=== PATIENT | female | born 1995 | race African-American/Black ===

== ENCOUNTER 2016-07-07 04:14 | Emergency (ER) | payer OTHER, SELFPAY ==
[2016-07-07] MEDS ORDERED: LIDOCAINE W/EPINEPHRINE 1% 20ML VIAL As Ordered ONE (04:38)
--- NOTE | 2016-07-07 05:16 | EDDOCDS ---
Physician Documentation [facility] Name: Caitlin Bardales Age: 20 yrs Sex: Female : 1995 Arrival Date: 07/07/2016 Time: 04:14 Bed 9 Private MD: Shavon Turner Disposition: 07/07/16 05:05 Discharged to Home/Self Care. Impression: Cracked tooth. - Condition is Stable. - Prescriptions for Clindamycin HCl 150 mg Oral Capsule - take 1 capsule by ORAL route 4 times per day for 10 days; 40 capsule. - Medication Reconciliation, Local Pharmacy Hours form. - Follow up: Private Physician; When: follow with dentist. - Problem is an ongoing problem. - Symptoms have improved. Historical: - Allergies: No known drug Allergies; - Home Meds: 1. none - PMHx: none; - PSHx: ; - Social history: Smoking status: Patient states was never smoker of tobacco. No barriers to communication noted, The patient speaks fluent Romanian. - Family history: Not pertinent. - : The pt / caregiver states he / she is not on anticoagulants. Home medication list is obtained from the patient. - Exposure Risk Screening:: None identified. 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 1 in. (154.94 cm); Pain 7/10; 04:27 Body Mass Index 28.34 (68.04 kg, 154.94 cm) [facility] Procedures: 05:02 Dental block: Location: periapical block. cs11 05:02 Dental block: Medication: Lidocaine 1% with epinephrine, Amount: 3.0 mls were injected, cs11 Effect: the patient tolerated the procedure well. MDM: 04:46 Financial registration complete. pm4 04:49 [facility] Payment Agreement was scanned into [employer] and attached to record. pm4 Signatures: Krzysztof Edmonds DO DO cs11 Maria Elena Rosario RN RN mlc Amber Aguayo RN RN ko2 Harjit Dominique, Reg Reg pm4 The chart was reviewed and I authenticate all verbal orders and agree with the evaluation and treatment provided.Attachments: 04:49 [facility] Payment Agreement pm4 MTDD
--- NOTE | 2016-07-07 05:16 | EDDOCDS ---
Nurse's Notes [facility] Name: Caitlin Bardales Age: 20 yrs Sex: Female : 1995 Arrival Date: 07/07/2016 Time: 04:14 Bed 9 Private MD: Shavon Turner Diagnosis: Cracked tooth Presentation: 07/07 04:26 Presenting complaint: Patient states: dental pain for 3 days, pt reports facial mlc swelling on right side. pt c/o headache. pt states she does not have dental insurance at this time. Adult Sepsis Screening: The patient does not have new or worsening altered mentation. Patient's respiratory rate is less than 22. Systolic blood pressure is greater than 100. Patient has a qSOFA score of 0- Negative Sepsis Screen. Suicide/Homicide risk assessment- the patient denies having any suicidal and/or homicidal ideations and does not present with any other emotional, behavioral or mental health complaints. Status: The patient is a dependent. Transition of care: patient was not received from another setting of care. 04:26 Acuity: SHAHEEN Level 5 mlc 04:26 Method Of Arrival: Walkin/Carried/Asstd mlc Triage Assessment: 04:27 General: Appears in no apparent distress, comfortable, Behavior is appropriate for age, mlc cooperative. Pain: Location: upper right third molar Pain currently is 7 out of 10 on a pain scale. HIV screening NA for this visit Offered previously. The patient is triaged at the bedside. See Assessment in Nurses Notes section of ED record. Neurological: Level of Consciousness is awake, alert, Oriented to person, place, time. EENT: Reports pain in upper right third molar. Respiratory: Airway is patent Respiratory effort is even, unlabored, Respiratory pattern is regular. Derm: Skin is normal, no swelling noted. 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 none - PMHx: none; - PSHx: ; - Social history: Smoking status: Patient states was never smoker of tobacco. No barriers to communication noted, The patient speaks fluent Togolese. - Family history: Not pertinent. - : The pt / caregiver states he / she is not on anticoagulants. Home medication list is obtained from the patient. - Exposure Risk Screening:: None identified. Screenin:30 Screening information is obtained from the patient. Fall risk: No risks identified. [facility] Assistance ADL's: requires no assistance with activities of daily living. Abuse/DV Screen: The patient / caregiver reports he/she is: not in a situation that causes fear, pain or injury. Nutritional screening: No deficits noted. Advance Directives: Currently, there is no health care proxy. There is no Power of Welder [employer]. home support is adequate. Assessment: 04:35 General: Appears in no apparent distress, Behavior is appropriate for age, cooperative. nn1 Pain: Location: upper right third molar Pain currently is 7 out of 10 on a pain scale. Neurological: Level of Consciousness is awake, alert. EENT: Reports pain in upper right third molar Pain is 7 out of 10 on a pain scale. Respiratory: Derm: Skin is normal. 05:11 General: Appears in no apparent distress, Behavior is appropriate for age, cooperative. ko2 Pain: Denies pain. Neurological: Level of Consciousness is awake, alert. Respiratory: Airway is patent Respiratory effort is even, unlabored. Derm: Skin is normal. Vital Signs: 04:27 BP 130 / 87; Pulse 74; Resp 18; Temp 97.1(T); Pulse Ox 100% ; Weight 68.04 kg; Height 5 [facility] ft. 1 in. (154.94 cm); Pain 7/10; 04:27 Body Mass Index 28.34 (68.04 kg, 154.94 cm) [facility] Vitals: 04:27 Log In Time: July 07, 2016 at 04:14. [facility] ED Course: 04:16 Patient visited by Bushra Forrest Reg. hs2 04:16 Shavon Turner is Private Physician. hs2 04:16 Patient moved to Waiting hs2 04:27 Triage Initiated [facility] 04:31 Amber Aguayo,PAZ is Primary Nurse. [facility] 04:31 Krzysztof Edmonds DO is Attending Physician. cs11 04:31 Patient visited by Krzysztof Edmonds DO. cs11 04:31 Patient moved to 9 [facility] 04:49 [facility] Payment Agreement was scanned into [employer] and attached to record. pm4 05:11 The patient / caregiver is instructed regarding the plan of care and ED course. ko2 05:11 No IV's were initiated during this patient's visit. No procedures done that require ko2 assistance. Order Results: There are currently no results for this order. Outcome: 05:05 Discharge ordered by Provider. cs11 05:12 Discharge Assessment: Patient awake, alert and oriented x 3. No cognitive and/or ko2 functional deficits noted. Patient verbalized understanding of disposition instructions. patient administered narcotics - no. The following High Risk Discharge criteria are identified: None. Discharged to home ambulatory. Condition: stable. Discharge instructions given to patient, Instructed on discharge instructions, follow up and referral plans. medication usage, Demonstrated understanding of instructions, medications, Pt was receptive of discharge instructions/ teaching. Prescriptions given X 1. No special radiology studies were completed. Property :Personal belongings accompany Pt. 05:15 Patient left the ED. ko2 Signatures: Krzysztof Edmonds, DO cs11 Maria Elena Rosario,PAZ RN [facility] Amber Aguayo RN RN ko2 Wilbert Jett RN RN nn1 Bushra Forrest, Reg Reg hs2 Harjit Dominique, Reg Reg pm4 MTDD
--- NOTE | 2016-07-09 06:16 | EDDOCDS ---
Physician Documentation [facility] Name: Caitlin Bardales Age: 20 yrs Sex: Female : 1995 Arrival Date: 07/07/2016 Time: 04:14 Bed 9 Private MD: Shavon Turner Disposition: 07/07/16 05:05 Discharged to Home/Self Care. Impression: Cracked tooth. - Condition is Stable. - Prescriptions for Clindamycin HCl 150 mg Oral Capsule - take 1 capsule by ORAL route 4 times per day for 10 days; 40 capsule. - Medication Reconciliation, Local Pharmacy Hours form. - Follow up: Private Physician; When: follow with dentist. - Problem is an ongoing problem. - Symptoms have improved. Historical: - Allergies: No known drug Allergies; - Home Meds: 1. none - PMHx: none; - PSHx: ; - Social history: Smoking status: Patient states was never smoker of tobacco. No barriers to communication noted, The patient speaks fluent Iraqi. - Family history: Not pertinent. - : The pt / caregiver states he / she is not on anticoagulants. Home medication list is obtained from the patient. - Exposure Risk Screening:: None identified. 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 1 in. (154.94 cm); Pain 7/10; 04:27 Body Mass Index 28.34 (68.04 kg, 154.94 cm) [facility] Procedures: 05:02 Dental block: Location: periapical block. cs11 05:02 Dental block: Medication: Lidocaine 1% with epinephrine, Amount: 3.0 mls were injected, cs11 Effect: the patient tolerated the procedure well. MDM: 04:46 Financial registration complete. pm4 04:49 [facility] Payment Agreement was scanned into [employer] and attached to record. pm4 13:33 T-Sheet-- Draft Copy was scanned into [employer] and attached to record. gb Signatures: Aminta Mercado, Reg Reg Krzysztof Cross DO DO cs11 Rosario,Maria Elena,Amber Thomas RN, RN RN ko2 Harjit Dominique, Reg Reg pm4 The chart was reviewed and I authenticate all verbal orders and agree with the evaluation and treatment provided.Attachments: 04:49 [facility] Payment Agreement pm4 13:33 T-Sheet-- Draft Copy gb Chart Complete MTDD
--- NOTE | 2016-07-09 06:16 | EDDOCDS ---
Physician Documentation [facility] Name: Caitlin Bardales Age: 20 yrs Sex: Female : 1995 Arrival Date: 07/07/2016 Time: 04:14 Bed 9 Private MD: Shavon Turner Disposition: 07/07/16 05:05 Discharged to Home/Self Care. Impression: Cracked tooth. - Condition is Stable. - Prescriptions for Clindamycin HCl 150 mg Oral Capsule - take 1 capsule by ORAL route 4 times per day for 10 days; 40 capsule. - Medication Reconciliation, Local Pharmacy Hours form. - Follow up: Private Physician; When: follow with dentist. - Problem is an ongoing problem. - Symptoms have improved. Historical: - Allergies: No known drug Allergies; - Home Meds: 1. none - PMHx: none; - PSHx: ; - Social history: Smoking status: Patient states was never smoker of tobacco. No barriers to communication noted, The patient speaks fluent Salvadorean. - Family history: Not pertinent. - : The pt / caregiver states he / she is not on anticoagulants. Home medication list is obtained from the patient. - Exposure Risk Screening:: None identified. 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 1 in. (154.94 cm); Pain 7/10; 04:27 Body Mass Index 28.34 (68.04 kg, 154.94 cm) [facility] Procedures: 05:02 Dental block: Location: periapical block. cs11 05:02 Dental block: Medication: Lidocaine 1% with epinephrine, Amount: 3.0 mls were injected, cs11 Effect: the patient tolerated the procedure well. MDM: 04:46 Financial registration complete. pm4 04:49 [facility] Payment Agreement was scanned into [employer] and attached to record. pm4 13:33 T-Sheet-- Draft Copy was scanned into [employer] and attached to record. gb Signatures: Aminta Mercado, Reg Reg Krzysztof Cross DO DO cs11 Rosario,Maria Elena,Amber Thomas RN, RN RN ko2 Harjit Dominique, Reg Reg pm4 The chart was reviewed and I authenticate all verbal orders and agree with the evaluation and treatment provided.Attachments: 04:49 [facility] Payment Agreement pm4 13:33 T-Sheet-- Draft Copy gb Chart Complete MTDD
--- NOTE | 2016-07-09 06:16 | EDDOCDS ---
Nurse's Notes [facility] Name: Caitlin Bardales Age: 20 yrs Sex: Female : 1995 Arrival Date: 07/07/2016 Time: 04:14 Bed 9 Private MD: Shavon Turner Diagnosis: Cracked tooth Presentation: 07/07 04:26 Presenting complaint: Patient states: dental pain for 3 days, pt reports facial mlc swelling on right side. pt c/o headache. pt states she does not have dental insurance at this time. Adult Sepsis Screening: The patient does not have new or worsening altered mentation. Patient's respiratory rate is less than 22. Systolic blood pressure is greater than 100. Patient has a qSOFA score of 0- Negative Sepsis Screen. Suicide/Homicide risk assessment- the patient denies having any suicidal and/or homicidal ideations and does not present with any other emotional, behavioral or mental health complaints. Status: The patient is a dependent. Transition of care: patient was not received from another setting of care. 04:26 Acuity: SHAHEEN Level 5 mlc 04:26 Method Of Arrival: Walkin/Carried/Asstd mlc Triage Assessment: 04:27 General: Appears in no apparent distress, comfortable, Behavior is appropriate for age, mlc cooperative. Pain: Location: upper right third molar Pain currently is 7 out of 10 on a pain scale. HIV screening NA for this visit Offered previously. The patient is triaged at the bedside. See Assessment in Nurses Notes section of ED record. Neurological: Level of Consciousness is awake, alert, Oriented to person, place, time. EENT: Reports pain in upper right third molar. Respiratory: Airway is patent Respiratory effort is even, unlabored, Respiratory pattern is regular. Derm: Skin is normal, no swelling noted. 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 none - PMHx: none; - PSHx: ; - Social history: Smoking status: Patient states was never smoker of tobacco. No barriers to communication noted, The patient speaks fluent Nauruan. - Family history: Not pertinent. - : The pt / caregiver states he / she is not on anticoagulants. Home medication list is obtained from the patient. - Exposure Risk Screening:: None identified. Screenin:30 Screening information is obtained from the patient. Fall risk: No risks identified. [facility] Assistance ADL's: requires no assistance with activities of daily living. Abuse/DV Screen: The patient / caregiver reports he/she is: not in a situation that causes fear, pain or injury. Nutritional screening: No deficits noted. Advance Directives: Currently, there is no health care proxy. There is no Power of Pencils Washer. home support is adequate. Assessment: 04:35 General: Appears in no apparent distress, Behavior is appropriate for age, cooperative. nn1 Pain: Location: upper right third molar Pain currently is 7 out of 10 on a pain scale. Neurological: Level of Consciousness is awake, alert. EENT: Reports pain in upper right third molar Pain is 7 out of 10 on a pain scale. Respiratory: Derm: Skin is normal. 05:11 General: Appears in no apparent distress, Behavior is appropriate for age, cooperative. ko2 Pain: Denies pain. Neurological: Level of Consciousness is awake, alert. Respiratory: Airway is patent Respiratory effort is even, unlabored. Derm: Skin is normal. Vital Signs: 04:27 BP 130 / 87; Pulse 74; Resp 18; Temp 97.1(T); Pulse Ox 100% ; Weight 68.04 kg; Height 5 [facility] ft. 1 in. (154.94 cm); Pain 7/10; 04:27 Body Mass Index 28.34 (68.04 kg, 154.94 cm) [facility] Vitals: 04:27 Log In Time: July 07, 2016 at 04:14. [facility] ED Course: 04:16 Patient visited by Bushra Forrest Reg. hs2 04:16 Shavon Turner is Private Physician. hs2 04:16 Patient moved to Waiting hs2 04:27 Triage Initiated [facility] 04:31 Amber Aguayo,PAZ is Primary Nurse. [facility] 04:31 Krzysztof Edmonds DO is Attending Physician. cs11 04:31 Patient visited by Krzysztof Edmonds DO. cs11 04:31 Patient moved to 9 [facility] 04:49 [facility] Payment Agreement was scanned into [employer] and attached to record. pm4 05:11 The patient / caregiver is instructed regarding the plan of care and ED course. ko2 05:11 No IV's were initiated during this patient's visit. No procedures done that require ko2 assistance. 13:33 T-Sheet-- Draft Copy was scanned into [employer] and attached to record. gb Order Results: There are currently no results for this order. Outcome: 05:05 Discharge ordered by Provider. cs11 05:12 Discharge Assessment: Patient awake, alert and oriented x 3. No cognitive and/or ko2 functional deficits noted. Patient verbalized understanding of disposition instructions. patient administered narcotics - no. The following High Risk Discharge criteria are identified: None. Discharged to home ambulatory. Condition: stable. Discharge instructions given to patient, Instructed on discharge instructions, follow up and referral plans. medication usage, Demonstrated understanding of instructions, medications, Pt was receptive of discharge instructions/ teaching. Prescriptions given X 1. No special radiology studies were completed. Property :Personal belongings accompany Pt. 05:15 Patient left the ED. ko2 Signatures: Aminta Mercado, Reg Reg gb Krzysztof Edmonds, DO DO cs11 Maria Elena RosarioRN RN mlc Amber Aguayo RN RN ko2 Wilbert Jett RN RN nn1 Bushra Forrest, Reg Reg hs2 Harjit Dominique, Reg Reg pm4 Chart Complete [facility]
== END 2016-07-07 05:15 | disposition home or self-care (01) ==
LOC: M ED 04:14
DX: K08.89 Other specified disorders of teeth and supporting structures (principal)

== ENCOUNTER 2016-08-14 09:15 | Emergency (ER) | payer OTHER ==
[~2016-08-14] VITALS: Ht 154.9 cm; Wt 67.1 kg
[2016-08-14 11:54] LABS: BASO % 0.5 % (0.0-1.0); EOS # 0.5 K/mm3 (0.0-0.50); EOS % 7.6 % (0.0-3.0); LARGE UNSTAINED CELL # 0.1 K/mm3 (0.0-0.4); LARGE UNSTAINED CELL % 1.8 % (0.0-4.0); LYMPH # 2.2 K/mm3 (1.5-6.5); LYMPH % 30.3 % (24.0-44.0); MEAN CORPUSCULAR HEMOGLOBIN 29.5 pg (27.0-33.0); MEAN CORPUSCULAR HGB CONC 33.6 g/dl (32.0-36.5); MEAN CORPUSCULAR VOLUME 87.8 fl (80.0-96.0); MONO # 0.3 K/mm3 (0.0-0.8); MONO % 4.3 % (0.0-5.0); NEUTROPHILS # 3.8 K/mm3 (1.8-7.7); NEUTROPHILS % 55.5 % (36.0-66.0); PLATELET COUNT, AUTOMATED 271 k/mm3 (150-450); RED CELL DISTRIBUTION WIDTH 13.1 % (11.5-14.5); WHITE BLOOD COUNT 6.9 K/mm3 (4.0-10.0)
[2016-08-14 12:08] LABS: CONTROL LINE HCG INT CTR LINE PRESENT
[2016-08-14 12:12] LABS: ANION GAP 7 MEQ/L (8-16); BLOOD UREA NITROGEN 8 MG/DL (7-18); CALCIUM LEVEL 8.7 MG/DL (8.5-10.1); CARBON DIOXIDE LEVEL 28 MEQ/L (21-32); CHLORIDE LEVEL 108 MEQ/L (98-107); CREATININE FOR GFR 0.82 MG/DL (0.55-1.02); GLOMERULAR FILTRATION RATE > 60.0 (>60); GLUCOSE, FASTING 80 MG/DL (70-105); POTASSIUM SERUM 3.8 MEQ/L (3.5-5.1); SODIUM LEVEL 143 MEQ/L (136-145)
[2016-08-14] MEDS ORDERED: IBUP80TA PO (13:51)
[2016-08-14 14:06] VITALS: BP 121/89
--- NOTE | 2016-08-14 14:07 | REP ---
PELVIC SONOGRAPHY: HISTORY: Pelvic pain. Dysmenorrhea. FINDINGS: Transabdominal and transvaginal scanning are performed. Uterine dimensions are normal at 6.6 x 4.6 x 3.1 cm. Endometrial echo is 0.4 cm thick and centrally placed. Uterine myometrial texture is somewhat heterogeneous but no definable fibroid is seen. There is a trace of fluid in the cul-de-sac. Right ovary dimensions are 3.2 x 1.7 x 2.2 cm. There are several small follicle cysts in the right ovary and a 0.8 cm hypoechoic cystic area is seen consistent with a hemorrhagic follicle. The left ovary measures 3.5 x 2.9 x 1.9 cm. It has a normal appearance. Doppler flow is normal in both ovaries with resistive indices measured at 0.45 and 0.47 on the right and left respectively. IMPRESSION: No significant abnormality. Signed by Bennett Noyola MD 08/14/2016 02:34 P
== END 2016-08-14 14:22 | disposition home or self-care (01) ==
LOC: M ED 11:24
DX: N94.6 Dysmenorrhea, unspecified (principal)

== ENCOUNTER 2016-09-06 12:25 | Emergency (ER) | payer OTHER ==
[~2016-09-06] VITALS: Ht 154.9 cm; Wt 71.7 kg
[~2016-09-06 12:25] MED LIST: IBUP80TA PO
--- NOTE | 2016-09-06 14:02 | REP ---
Clinical: Vaginal bleeding for dating and viability. Technique: Transabdominal and transvaginal first trimester obstetrical ultrasound with color Doppler evaluation. Findings: Retroverted heterogeneous uterus measures 7.0 x 4.2 x 4.3 cm. The endometrial complex is distended to 15 mm suggesting decidual reaction without evidence for intrauterine . Bilateral maternal ovaries are normal in appearance and vascularity without torsion. Right ovary measures 2.9 x 1.3 x 2.3 cm; RI equal 0.50. Left ovary measures 2.7 x 1.8 x 2.4 cm; RI equal 0.53. Trace pelvic free fluid. No adnexal mass lesion. Impression: Heterogeneous uterus with presumed decidual reaction but no intrauterine . Differential diagnosis includes early normal versus spontaneous . As such, ectopic cannot be excluded. Correlation with serial HCG levels and repeat ultrasound may be warranted. Signed by Qamar Neville MD 09/06/2016 01:53 P
[2016-09-06 14:37] VITALS: BP 144/88
== END 2016-09-06 15:00 | disposition home or self-care (01) ==
LOC: M ED 13:01
DX: N92.5 Other specified irregular menstruation (principal)

== ENCOUNTER 2016-10-10 17:55 | Emergency (ER) | payer OTHER ==
[~2016-10-10] VITALS: Ht 154.9 cm; Wt 71.7 kg
[2016-10-10 19:53] VITALS: BP 120/79
== END 2016-10-10 19:58 | disposition home or self-care (01) ==
LOC: M ED 18:46
DX: N89.8 Other specified noninflammatory disorders of vagina (principal)

== ENCOUNTER 2017-01-10 10:22 | Emergency (ER) | payer OTHER ==
[~2017-01-10] VITALS: Ht 154.9 cm; Wt 80.4 kg
[2017-01-10] MEDS ORDERED: KETOROLAC 60 MG/2 ML VIAL (J1885) IM ONE (10:45)
[2017-01-10 11:51] VITALS: BP 123/82
[2017-01-10] MEDS ORDERED: ULTR50TA8 PO (12:27)
[2017-01-10] MEDS ORDERED: BACT800T5 PO (12:27)
--- NOTE | 2017-01-10 12:38 | REP ---
SUPINE ABDOMEN: 01/10/2017 Clinical history low back pain. Two views to encompass the entirety of the abdomen pelvis were performed. Bones are grossly intact. There are a few pelvic phleboliths in the deep pelvis on each side. I see no evidence of stone over the renal fossae or expected course the ureters. Visualized gas pattern was normal. There is no sign of obstruction or mass. IMPRESSION: 1. No mass, gas pattern abnormality or evidence of calcification in the renal collecting system, ureters or bladder. Signed by Sree Devine MD 01/10/2017 07:08 P
== END 2017-01-10 12:34 | disposition home or self-care (01) ==
LOC: M ED 10:22
DX: N30.00 Acute cystitis without hematuria (principal); M54.14 Radiculopathy, thoracic region; E66.9 Obesity, unspecified; Z79.899 Other long term (current) drug therapy
CPT/HCPCS: 74000; 81001; 81025; 96372; 99283; J1885

== ENCOUNTER 2017-01-12 04:05 | Emergency (ER) | payer OTHER ==
[~2017-01-12] VITALS: Ht 154.9 cm; Wt 81.4 kg
[~2017-01-12 04:05] MED LIST changes: +BACT800T5 PO; +ULTR50TA8 PO
[2017-01-12] MEDS ORDERED: NAPR500T3 PO (04:18)
[2017-01-12] MEDS ORDERED: APAP325T4 PO (04:18)
[2017-01-12] MEDS ORDERED: METH1TAB40 PO (04:18)
[2017-01-12] MEDS ORDERED: diphenhydrAMINE INJ 50MG/ML VIAL (J1200) IM STA (05:26)
[2017-01-12 05:31] VITALS: BP 137/81
--- NOTE | 2017-01-12 08:12 | REP ---
Clinical: Trauma. Technique: AP, lateral views of the left hand. Findings: The osseous structures and joint spaces are intact and normal. There is no evidence for acute fracture or dislocation. Surrounding soft tissues are unremarkable. No subcutaneous emphysema or radiodense foreign body. Impression: No obvious acute fracture / dislocation or injury. Signed by Qamar Neville MD 01/12/2017 05:32 A
== END 2017-01-12 05:44 | disposition home or self-care (01) ==
LOC: M ED 04:05
DX: L25.9 Unspecified contact dermatitis, unspecified cause (principal); M54.9 Dorsalgia, unspecified; Z79.899 Other long term (current) drug therapy
CPT/HCPCS: 73120; 96372; 99284; J1200

== ENCOUNTER 2017-03-13 14:12 | Emergency (ER) | payer OTHER ==
[~2017-03-13] VITALS: Ht 154.9 cm; Wt 84.1 kg
[~2017-03-13 14:12] MED LIST changes: +APAP325T4 PO; +METH1TAB40 PO; +NAPR500T3 PO
[2017-03-13] MEDS ORDERED: FLON1SPR (17:40)
[2017-03-13] MEDS ORDERED: AUGM875T28 PO (17:40)
[2017-03-13] MEDS ORDERED: IBUPROFEN 800 MG TAB PO ONE (17:45)
[2017-03-13] MEDS ORDERED: diphenhydrAMINE 25 MG CAP PO ONE (17:45)
[2017-03-13] MEDS ORDERED: AUGMENTIN 875 MG TAB PO ONE (17:45)
[2017-03-13 18:01] VITALS: BP 134/87
== END 2017-03-13 18:00 | disposition home or self-care (01) ==
LOC: M ED 14:12
DX: R51 Headache (principal); J01.90 Acute sinusitis, unspecified

== ENCOUNTER → 2018-08-27 | Outpatient (CLI) | payer OTHER ==
[~2018-08-27] MED LIST changes: +AUGM875T28 PO; +FLON1SPR; +ISOVUE-370 76% 125ML VIAL (Q9967 PER ML) As Ordered ONE; +NAPR-885 PO; -NAPR500T3 PO
--- NOTE | 2018-08-27 12:41 | REP ---
HYSTEROSALPINGOGRAM: HISTORY: Secondary infertility. FINDINGS: Contrast injected by the attending operational review sergeant demonstrates opacification of a normal endometrial cavity. The isthmic and ampullary segments of the fallopian tubes are opacified. Bilateral peritoneal spillage is documented. IMPRESSION: Normal hysterosalpingography. 0.4 minutes of fluoroscopy time was utilized. Electronically Signed by Bennett Noyola MD 08/27/2018 07:47 P
== END ==
LOC: M RADPRO 11:11
PROVIDERS: ATTEND Obstetrics & Gynecology
DX: N97.9 Female infertility, unspecified (principal)
CPT/HCPCS: 58340; 74740; Q9967

== ENCOUNTER → 2018-10-24 | Outpatient (REF) | payer OTHER ==
[~2018-10-24] MED LIST changes: -ISOVUE-370 76% 125ML VIAL (Q9967 PER ML) As Ordered ONE
== END ==
LOC: M SFHCLERA 11:18
PROVIDERS: ATTEND Nurse Practitioner Family
DX: R07.0 Pain in throat (principal)